=== PATIENT | female | born 1995 | race Caucasian/White ===

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

== ENCOUNTER 2017-08-19 16:21 | Emergency (ER) | payer OTHER ==
[~2017-08-19] VITALS: Ht 160 cm; Wt 55.7 kg
[2017-08-19 16:26] VITALS: TEMP 36.3; Ht 160 cm; Wt 55.7 kg
[2017-08-19] MEDS ORDERED: AMPH10TA2 PO (16:54)
--- NOTE | 2017-08-19 17:00 | EMERGENCY ROOM VISIT NOTE ---
History First contact with patient: 16:28 Chief Complaint: HEAD INJURY (MINOR) Stated Complaint: HEAD INJURY,HEADACHE, NO APPETITE,EYE SENSITI History of Present Illness The patient is a 22 year old female who presents to the Emergency Room with complaints of a closed head injury. The patient reports that 2 days ago, she was opening a door and the door struck her in the forehead. She states that since then, she has had a gradually worsening headache. She describes the pain as throbbing and rates the discomfort a 6/10. The patient does have a history of migraines but states this does not feel similar. She has associated decreased appetite, mildly positive patient, light sensitivity and difficulty focusing. She did take Excedrin which helped her headache. The patient denies any nausea or vomiting. She denies any confusion or slurred speech. She denies any loss of consciousness. Review of Systems A complete 10 point review of systems was reviewed with the patient with pertinent positives and negatives as per history of present illness. All else were negative. Past Medical/Surgical History No significant PMHx Social History Smoking Status: Never Smoker Marital Status: single Housing Status: lives with roommate Occupation Status: [employer] student Current/Historical Medications Scheduled Amphetamine-Dextroamphetamine 10MG (Adderall 10MG), 10 MG PO [id number] Physical Exam Vital Signs Date Time Temp Pulse Resp B/P (MAP) Pulse Ox O2 Delivery O2 Flow Rate FiO2 08/19/17 17:10 64 20 97/57 99 08/19/17 16:26 36.3 62 16 111/68 100 Room Air Physical Exam VITALS: Vitals are noted on the nurse's note and reviewed by myself. Vital signs stable. GENERAL: This is a 22-year-old female, in no acute distress, nondiaphoretic, well-developed well-nourished. SKIN: There is a superficial, healing abrasion to the center of the forehead. HEAD: Normocephalic atraumatic. EARS: External auditory canals clear, tympanic membranes pearly meade without erythema or effusion bilaterally. No hemotympanum. EYES: Pupils equal round and reactive to light and accommodation. Extraocular movements intact. NOSE: Patent, turbinates without inflammation or discharge. MOUTH: Mucous membranes moist. Tonsils are not enlarged. Pharynx without erythema or exudate. NECK: Supple without nuchal rigidity. Cervical spine is nontender. HEART: Regular rate and rhythm without murmurs gallops or rubs. LUNGS: Clear to auscultation bilaterally without wheezes, rales or rhonchi. MUSCULOSKELETAL: Strength 5/5 throughout. NEURO: Patient was alert and oriented to person place and time. No focal neurological deficits. Medical Decision & Procedures Medical Decision Differential diagnosis includes concussion, intracranial hemorrhage, skull fracture, among others. The patient was evaluated as above. She sustained a head injury 2 days ago. The patient has no vomiting, loss of consciousness or other concerning symptoms which would necessitate CT scan. Benefit/risk of performing CT scan versus observation and close follow-up were discussed with the patient. She was offered CT scan and declined at this time. Conservative measures were discussed at length the patient. She will follow-up with [facility] as needed. She verbalized understanding of my assessment and treatment plan and was discharged home in good condition. Head Trauma GCS Score: 15 Medication Reconcilliation Current Medication List: was personally reviewed by me Blood Pressure Screening Patient's blood pressure: Normal blood pressure Impression Primary Impression: Concussion Departure Information Dispostion Home / Self-Care Condition GOOD Referrals No Doctor, Assigned (PCP) Patient Instructions ED Concussion, My [facility] Additional Instructions You have been treated in the Emergency Department for a Closed Head Injury. For pain control, you can use the following [id number] medicines (if >12 yo): - Regular strength (325mg/tab) Tylenol (acetaminophen) 2 tabs every 4-6 hours as needed. Do not exceed 12 tablets in a 24 hour period. Avoid taking more than 4 grams (4000 mg) of Tylenol per day. This includes any other sources of acetaminophen you may take on a regular basis. - Regular strength (200 mg/tab) Advil (ibuprofen) 1-2 tabs every 4-6 hours as needed. Do not exceed a dose of 3200 mg per day. You should relax in a quiet, dark place for the rest of the day. Avoid any possible triggers including: cigarette smoke, caffeine, nicotine, chocolate, wine, beer, loud noises or music, or bright lights. You should schedule a follow-up appointment in 2-3 days with your Primary Care Provider or established Neurologist for further evaluation and treatment of your Headache. Return to the Emergency Department if your current symptoms worsen despite treatment course outlined above, or if you develop any of the following symptoms : intractable pain despite aforementioned treatment course, visual disturbances , loss of vision, unilateral weakness or facial drooping, slurring of speech, loss of coordination, or loss of consciousness. Problem Qualifiers Primary Impression: Concussion Encounter type: initial encounter Loss of consciousness presence/duration: without LOC Qualified Codes: S06.0X0A - Concussion without loss of consciousness, initial encounter
[2017-08-19 17:10] VITALS: BP 97/57; PULSE 64; O2SAT 99
== END 2017-08-19 17:10 | disposition home or self-care (01) ==
LOC: C.EDB 16:24 → C.EDD 17:10
DX: S06.0X0A Concussion without loss of consciousness, initial encounter (principal); W22.8XXA Striking against or struck by other objects, initial encounter; Y93.89 Activity, other specified; Y99.8 Other external cause status